=== PATIENT | male | born 1970 | race Caucasian/White ===

== ENCOUNTER 2018-08-27 11:24 | Emergency (ER) | payer BC ==
[2018-08-27 12:21] VITALS: TEMP 98.1
[2018-08-27] MEDS ORDERED: SODIUM CHLORIDE 0.9% 1000ML 500 ML IVS ONE (12:31)
--- NOTE | 2018-08-27 12:34 | ED.PDOC ---
History of Present Illness - General Chief Complaint: General Stated Complaint: lower abd pain, lt shoulder pain Time Seen by Provider: 08/27/18 12:12 Information Source: patient, RN notes reviewed, Vital Signs reviewed Exam Limitations: no limitations - History of Present Illness Initial Comments: c/o suprapubic & RLQ pain x 2 weeks. Intermittent. No previous episodes. Abdominal Pain Onset Location: RLQ, suprapubic Pain Radiation: flank Quality: moderate, intermittent, sharpness, waxing/waning Timing/Duration: other - 2 weeks Improving Factors: nothing Worsening Factors: nothing Associated Symptoms: denies symptoms Review of Systems - Review of Systems Constitutional: States: no symptoms reported EENTM: States: no symptoms reported Respiratory: States: no symptoms reported Cardiology: States: no symptoms reported Gastrointestinal/Abdominal: States: see HPI Genitourinary: States: no symptoms reported Musculoskeletal: States: other - left shoulder pain - chronic. Worse with abduction. Skin: States: no symptoms reported Neurological: States: no symptoms reported Hematologic/Lymphatic: States: no symptoms reported Past Medical History (General) - Patient Medical History Hx Seizures: No Hx Stroke: No Hx Dementia: No Hx Asthma: No Hx of COPD: No Hx Cardiac Disorders: No Hx Congestive Heart Failure: No Hx Pacemaker: No Hx Hypertension: No Hx Thyroid Disease: No Hx Diabetes: No Hx Gastroesophageal Reflux: No Hx Renal Disease: No Hx Cancer: No Hx of HIV: No Hx Hepatitis C: No Hx MRSA: No Surgical History: no surgical history - Vaccination History Hx Tetanus, Diphtheria Vaccination: No Hx Influenza Vaccination: No Hx Pneumococcal Vaccination: No - Social History Hx Tobacco Use: Yes Cigarettes Packs Per Day: 5 Hx Alcohol Use: Yes Hx Substance Use: Yes Hx Substance Use Treatment: No Hx Depression: No Feels Threatened In Home Enviroment: No Family Medical History - Family History Grandparents Family History: Unknown Hx Family Cancer: Yes Physical Exam - Physical Exam General Appearance: Alert, Comfortable, No apparent distress, Other - sleeping Eyes, Ears, Nose, Throat Exam: normal ENT inspection Neck: supple, normal inspection Respiratory: normal breath sounds, no respiratory distress Cardiovascular/Chest: regular rate, rhythm, no edema, no murmur Gastrointestinal/Abdominal: soft, no organomegaly, tenderness - suprapubic Extremity: non-tender, normal inspection, no pedal edema Neurologic: alert, normal mood/affect, oriented x 3 Skin Exam: normal color, warm/dry Special Observations: No evidence of discomfort Progress - Progress Progress: 08/27/18 13:58 unchanged. Insists he does not want to be transferred by ambulance. Medically I feel it is safe to do that. Will give him a dose of abx here & initial fluids. Direct admit to [facility]. - Results/Orders Results/Orders: WBC 13 Cr 0.84 TB 1.3 - EKG/XRAY/CT XRAY: shoulder - no acute process CT Ordered: Yes - diverticulitis with abscess; single kidney - Consult/PCP Time Called: 13:59 Consult/PCP: Dr. Carlson Departure - Departure Clinical Impression: Diverticulitis, Absent kidney, congenital Shoulder pain Qualifiers: Chronicity: chronic Laterality: left Qualified Code(s): M25.512 - Pain in left shoulder; G89.29 - Other chronic pain Sepsis Qualifiers: Sepsis type: sepsis due to unspecified organism Qualified Code(s): A41.9 - Sepsis, unspecified organism Time of Disposition: 14:02 Disposition: Transfer to Hospital Condition: Good Departure Forms: ED Discharge - Pt. Copy, Patient Portal Self Enrollment
--- NOTE | 2018-08-27 13:22 | RAD ---
Procedure: XR SHOULDER 2 OR MORE VIEWS Exam Date: 08/27/2018 12:30 PM CDT Ordering Provider: KOBI MUIR Clinical Indication: Shoulder pain Comparison: None Findings: No fracture, focal osseous destruction, or malalignment. Moderate glenohumeral and mild acromio clavicular joint space narrowing and spurring is present. Soft tissues are unremarkable. 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 Procedure: CT ABDOMEN PELVIS WITH IV CONTRAST Exam Date: 08/27/2018 12:30 PM CDT Ordering Provider: KOBI MUIR Clinical Indication: RLQ pain Comparison: None TECHNIQUE: The abdomen and pelvis were scanned utilizing a multidetector helical scanner from the diaphragm to the lesser trochanter . Low osmolar IV contrast was also given. Coronal and sagittal reformations were obtained. This exam was performed according to our departmental dose-optimization program which includes automated exposure control, adjustment of the mA and/or kV according to patient size and/or use of iterative reconstruction technique. DISCUSSION: LOWER THORAX: Normal. HEPATOBILIARY: No focal hepatic lesions. No biliary ductal dilatation. SPLEEN: No splenomegaly. PANCREAS: No focal masses or ductal dilatation. ADRENALS: No adrenal nodules. KIDNEYS/URETERS: Left kidney is not visualized. It may be congenitally or surgically absent. PELVIC ORGANS/BLADDER: Left seminal vesicle is also not visualized and may be congenitally absent. Bladder is unremarkable in appearance. PERITONEUM / RETROPERITONEUM: No free air or fluid. LYMPH NODES: Subcentimeter. Aris hepatis/peripancreatic and retroperitoneal lymph nodes are seen, favored to be reactive VESSELS: Unremarkable. GI TRACT: Stomach is mildly distended. Small bowel is normal in caliber. There is descending and sigmoid colonic diverticulosis. There is circumferential wall thickening with surrounding inflammation involving a short segment of the proximal sigmoid colon. A 2.0 x 1.9 cm fluid collection is seen within the anterior wall of the sigmoid colon. Appendix is unremarkable. BONES AND SOFT TISSUES: No acute abnormality. IMPRESSION: Acute sigmoid diverticulitis with presence of a 2.0 x 1.9 cm diverticular wall abscess. This is not percutaneously drainable. Recommend follow-up to document resolution. No free air. Nonvisualization of the left kidney which may be congenitally absent or may represent postoperative change. Correlate with history. Electronically signed by: Dixon Mcgovern MD 08/27/2018 1:20 PM CDT
[2018-08-27 13:47] VITALS: BP 122/73
[2018-08-27] MEDS ORDERED: SODIUM CHLORIDE 0.9% 1000ML 1,000 ML IVS ONE (13:56)
[2018-08-27] MEDS ORDERED: PIPERACILLIN/TAZOBACTAM 3.375 GM in SODIUM CHLORIDE 0.9% 100ML 100 ML IVPB ONE (13:56)
[2018-08-27] MEDS ORDERED: SODIUM CHLORIDE 0.9% 100ML 100 ML IVPB ONE (13:57)
[2018-08-27] MEDS ORDERED: PIPERACILLIN/TAZOBACTAM 3.375 GM VIAL IVPB ONE (13:57)
[2018-08-27 15:28] VITALS: O2SAT 98
== END 2018-08-27 15:20 | disposition short-term general hospital (02) ==
LOC: ER 11:24
DX: A41.9 Sepsis, unspecified organism (principal); K57.20 Diverticulitis of large intestine with perforation and abscess without bleeding; M25.512 Pain in left shoulder; Q60.0 Renal agenesis, unilateral; Z87.891 Personal history of nicotine dependence
CPT/HCPCS: 36415; 73030; 74177; 80053; 81001; 83605; 85025; 87040; J2543; J7030; J7050

== ENCOUNTER → 2019-12-01 | Outpatient (CLI) | payer OTHER ==
--- NOTE | 2019-12-04 08:09 | MRI ---
Study: MRI of the Right Shoulder. Indication: STRAIN OF MUSCLE Technique: Multiplanar, multi sequence MRI of the right shoulder was obtained without intravenous contrast. Comparison: None. Findings: Moderate AC joint osteoarthritis. Type I acromion. Supraspinatus and infraspinatus tendinosis. Bursal surface fraying and interstitial fissuring of both tendons. Subscapularis tendinosis. Teres minor tendon intact. Mild atrophy and grade 1 fatty infiltration rotator cuff musculature. Intracapsular long head biceps tendinosis. Anterior superior sublabral foramen. Circumferential labral truncation/degeneration. Mild glenohumeral joint osteoarthritis and tiny joint effusion. No acute fracture. Impression: Supraspinatus and infraspinatus tendinosis with scattered bursal surface fraying and interstitial fissuring. Subscapularis tendinosis. Mild atrophy and grade 1 fatty infiltration rotator cuff musculature. Intracapsular long head biceps tendinosis. Circumferential labral truncation and degeneration. Mild glenohumeral joint osteoarthritis. Moderate AC joint osteoarthritis. Electronically signed by: Kevin Del Real MD 12/04/2019 8:07 AM CDT
== END ==
LOC: MRI 13:00
PROVIDERS: ATTEND Orthopaedic Surgery
DX: S46.011A Strain of muscle(s) and tendon(s) of the rotator cuff of right shoulder, initial encounter (principal); S43.431A Superior glenoid labrum lesion of right shoulder, initial encounter; M75.91 Shoulder lesion, unspecified, right shoulder; M75.21 Bicipital tendinitis, right shoulder; M19.011 Primary osteoarthritis, right shoulder; M62.511 Muscle wasting and atrophy, not elsewhere classified, right shoulder

== ENCOUNTER → 2020-05-07 | Outpatient (CLI) | payer OTHER | LOC: GMA MATASK 14:15 | PROVIDERS: ATTEND Family Medicine | DX: M54.2 Cervicalgia (principal) ==